=== PATIENT | male | born 1965 | race Caucasian/White ===

== ENCOUNTER 2021-12-02 16:47 | Emergency (ER) | payer MEDICARE ==
[2021-12-02] MEDS ORDERED: Fluorescein 1 MG Ophth Strip EYELF ONE (17:37)
[2021-12-02] MEDS ORDERED: Proparacaine 0.5% Ophth Soln 15 ML Bottle EYELF PRN (17:37)
[2021-12-02] MEDS ORDERED: Ciprofloxacin 0.3% Ophth Soln 2.5 ML Bottle EYELF ONE (17:46)
== END 2021-12-02 17:55 | disposition home or self-care (01) ==
LOC: VM.ED 16:47
DX: S05.02XA Injury of conjunctiva and corneal abrasion without foreign body, left eye, initial encounter (principal); X58.XXXA Exposure to other specified factors, initial encounter
CPT/HCPCS: 65220; 99283; A9270